=== PATIENT | female | born 1990 | race Caucasian/White ===

== ENCOUNTER → 2018-10-27 | Outpatient (CLI) | payer OTHER ==
[~2018-10-27] MED LIST: ALBU90OI INH; AZIT250 PO; CODACE30 PO; CRUTCH USE; FAMO20 PO; HYDACE5 PO; IBUP600 PO; IBUP800 PO; KETO120T TOP; Keflex500 MG PO; OXYACE5T PO; PROACE100 PO; PROM25 PO; RANI150 PO; RXCODACET PO; RXPROACE PO; RXSULTRIDS PO; SULTRIDS PO; [UNRECOGNIZED DRUG - OTHER]
[2018-10-29 18:06] LABS: HPV 16 Positive (Negative); HPV 18 Negative (Negative); HPV OTHER HR TYPES Positive (Negative)
== END | disposition home or self-care (01) ==
LOC: LAB 18:48 → LAB SHORT 18:48
PROVIDERS: Obstetrics & Gynecology Gynecology
DX: Z12.4 Encounter for screening for malignant neoplasm of cervix (principal)
CPT/HCPCS: 87624; 87625; G0123

== ENCOUNTER → 2019-02-22 | Outpatient (CLI) | payer OTHER | END | disposition home or self-care (01) | LOC: LAB 15:10 → LAB SHORT 15:10 | DX: L29.0 Pruritus ani (principal); R19.5 Other fecal abnormalities | CPT/HCPCS: 87177; 87209 ==

== ENCOUNTER → 2019-03-18 | Outpatient (CLI) | payer OTHER | LOC: LAB 04:45 → LAB SHORT 04:45 | DX: R19.5 Other fecal abnormalities (principal) | CPT/HCPCS: 87177; 87209 ==

== ENCOUNTER → 2019-03-30 | Outpatient (CLI) | payer OTHER ==
[2019-03-31 11:07] LABS: Candida species (DNA Probe) Negative (NEGATIVE); G. vaginalis (DNA Probe) Positive (NEGATIVE); T. vaginalis (DNA Probe) Negative (NEGATIVE)
[2019-04-02 03:07] LABS: CHLAMYDIA TRACHOMATIS, NAA Negative (Negative); NEISSERIA GONORRHOEAE, NAA Negative (Negative)
== END | disposition home or self-care (01) ==
LOC: LAB 16:55 → LAB SHORT 16:55
PROVIDERS: Nurse Practitioner
DX: L73.9 Follicular disorder, unspecified (principal); Z72.51 High risk heterosexual behavior; Z87.42 Personal history of other diseases of the female genital tract
CPT/HCPCS: 87070; 87205; 87480; 87491; 87510; 87529; 87591; 87660; 88175

== ENCOUNTER → 2019-11-20 | Outpatient (CLI) | payer OTHER ==
[~2019-11-20] MED LIST changes: +CEFP200 PO; +Citalopram HBr20 MG PO; +Klonopin0.5 MG PO; +Norco 5-325 Ta1 EACH PO; +OLAN2.5 PO; +PANTOPRAZOLE SO40 M2 PO
== END | disposition home or self-care (01) ==
LOC: LAB SHORT 09:44 → LAB 09:44
DX: R10.9 Unspecified abdominal pain (principal)
CPT/HCPCS: 87077; 87086; 87186

== ENCOUNTER 2020-03-04 09:29 | Emergency (ER) | payer OTHER ==
[~2020-03-04] VITALS: Ht 157.5 cm; Wt 63.5 kg
[2020-03-04] MEDS ORDERED: SELSUN BLUE MO207 ML TOP (10:04)
== END 2020-03-04 10:29 | disposition home or self-care (01) ==
LOC: ER 09:29
DX: L21.9 Seborrheic dermatitis, unspecified (principal); K21.9 Gastro-esophageal reflux disease without esophagitis; Z88.6 Allergy status to analgesic agent; Z79.899 Other long term (current) drug therapy; F17.210 Nicotine dependence, cigarettes, uncomplicated
CPT/HCPCS: 99282

== ENCOUNTER → 2020-03-14 | Outpatient (CLI) | payer OTHER ==
[~2020-03-14] MED LIST changes: +SELSUN BLUE MO207 ML TOP
[2020-03-16 07:09] LABS: CHLAMYDIA TRACHOMATIS, NAA Negative (Negative); NEISSERIA GONORRHOEAE, NAA Negative (Negative)
== END | disposition home or self-care (01) ==
LOC: LAB SHORT 16:51 → LAB 16:51
PROVIDERS: Nurse Practitioner Family
DX: Z11.3 Encounter for screening for infections with a predominantly sexual mode of transmission (principal)
CPT/HCPCS: 87491; 87591

== ENCOUNTER → 2020-04-05 | Outpatient (CLI) | payer OTHER ==
[~2020-04-05] MED LIST changes: +BENADRYL ITCH28.3 GM TOP
== END | disposition home or self-care (01) ==
LOC: LAB SHORT 21:29 → LAB 21:29
DX: S00.01XA Abrasion of scalp, initial encounter (principal); L08.9 Local infection of the skin and subcutaneous tissue, unspecified
CPT/HCPCS: 87015; 87116; 87206

== ENCOUNTER 2020-05-25 19:26 | Emergency (ER) | payer OTHER ==
[~2020-05-25] VITALS: Ht 157.5 cm; Wt 72.6 kg
[~2020-05-25 19:26] MED LIST changes: -BENADRYL ITCH28.3 GM TOP
[2020-05-25 20:34] LABS: Alanine Aminotransfer (ALT/SGP 28 U/L (12-78); Albumin, Blood 2.9 g/dL (3.4-5.0); Albumin/Globulin Ratio 0.9 (0.8-1.8); Alk Phos 68 U/L (50-136); Anion Gap 6 mmol/L (6-16); Aspartate Aminotrans (AST/SGOT 27 U/L (12-37); Bilirubin, Total 0.2 mg/dL (0.1-1.0); Blood Urea Nitrogen 8 mg/dL (8-24); Bun/Creatinine Ratio 14.8 (12.0-20.0); CO2, Blood 25 mmol/L (21-32); Calcium, Blood 8.8 mg/dL (8.5-10.1); Chloride, Blood 111 mmol/L (98-108); Creatinine, Blood 0.54 mg/dL (0.40-1.00); Globulin, Blood 3.3 g/dL (2.2-4.0); Glomerular Filtration Rate >60 (60-); Glucose, Blood 87 mg/dL (70-99); Potassium, Blood 4.5 mmol/L (3.5-5.5); Sodium, Blood 142 mmol/L (136-145); Total Protein, Blood 6.2 g/dL (6.4-8.2)
[2020-05-25 21:44] LABS: BASOPHILS ABSOLUTE AUTO 0.05 K/mm3 (0.00-0.23); BASOPHILS PERCENT AUTO 0 % (0-2); EOSINOPHILS ABSOLUTE AUTO 0.36 K/mm3 (0.00-0.68); EOSINOPHILS PERCENT AUTO 3 % (0-6); Hematocrit 33.2 % (33.0-51.0); IMMATURE GRAN ABSOLUTE AUTO 0.07 K/mm3 (0.00-0.10); IMMATURE GRAN PERCENT AUTO 1 % (0-1); LYMPHOCYTES ABSOLUTE AUTO 3.34 K/mm3 (0.84-5.20); LYMPHOCYTES PERCENT AUTO 25 % (21-46); MONOCYTES ABSOLUTE AUTO 1.21 K/mm3 (0.16-1.47); MONOCYTES PERCENT AUTO 9 % (4-13); Mean Corpuscular HGB 31.1 pg (26.0-34.0); Mean Corpuscular HGB Conc 33.1 g/dL (31.5-36.5); Mean Corpuscular Volume 94 fL (80-100); Mean Platelet Volume 9.9 fL (9.1-12.4); NEUTROPHILS ABSOLUTE AUTO 8.23 K/mm3 (1.96-9.15); NEUTROPHILS PERCENT AUTO 62 % (41-73); Platelet Count 379 K/mm3 (150-400); RDW Coefficient Variation 12.9 % (11.7-14.2); RDW Standard Deviation 44.6 fL (35.1-46.3); Red Blood Cell Count 3.54 M/mm3 (3.80-5.20); White Blood Cell Count 13.26 K/mm3 (4.00-11.30)
[2020-05-25 22:52] LABS: Source, Urine Clean Catch
[2020-05-25 22:55] LABS: Appearance, Urine Clear (Clear); Bilirubin, Urine Neg (Neg); Blood, Urine Neg (Neg); Color, Urine Yellow (P-Yellow); Glucose Qualitative, Urine Neg (Neg); Ketones, Urine Neg (Neg); Leukocyte Esterase, Urine Neg (Neg); Nitrite, Urine Neg (Neg); Protein, Urine Neg (Neg); Specific Gravity, Urine 1.025 (1.003-1.022); Urobilinogen, Urine NORM (Normal)
[2020-05-25] MEDS ORDERED: BENADRYL ITCH28.3 GM TOP (23:43)
== END 2020-05-25 23:38 | disposition home or self-care (01) ==
LOC: ER 19:26
PROVIDERS: Emergency Medicine
DX: O99.891 Other specified diseases and conditions complicating pregnancy (principal); R10.32 Left lower quadrant pain; R21 Rash and other nonspecific skin eruption; F41.9 Anxiety disorder, unspecified; F32.9 Major depressive disorder, single episode, unspecified; K21.9 Gastro-esophageal reflux disease without esophagitis; F43.10 Post-traumatic stress disorder, unspecified; Z88.6 Allergy status to analgesic agent; Z79.899 Other long term (current) drug therapy; Z3A.23 23 weeks gestation of pregnancy
CPT/HCPCS: 36415; 76816; 80053; 81003; 85025; 86900; 86901; 99284-25

== ENCOUNTER 2020-06-26 00:10 | Emergency (ER) | payer OTHER ==
[~2020-06-26] VITALS: Ht 157.5 cm; Wt 71.2 kg
[~2020-06-26 00:10] MED LIST changes: +BENADRYL ITCH28.3 GM TOP
[2020-06-26] MEDS ORDERED: BANOPHEN25 MG PO (00:28)
[2020-06-26] MEDS ORDERED: Cimetidine800 MG PO (00:28)
[2020-06-26] MEDS ORDERED: PRENATAL VITAMIN PLU (00:28)
[2020-06-26] MEDS ORDERED: MUPIROCIN15 GM TOP (01:27)
== END 2020-06-26 01:42 | disposition home or self-care (01) ==
LOC: ER 00:10
DX: L73.9 Follicular disorder, unspecified (principal); F41.9 Anxiety disorder, unspecified; F32.9 Major depressive disorder, single episode, unspecified; F43.10 Post-traumatic stress disorder, unspecified; K21.9 Gastro-esophageal reflux disease without esophagitis; F17.210 Nicotine dependence, cigarettes, uncomplicated; Z88.6 Allergy status to analgesic agent; Z79.899 Other long term (current) drug therapy
CPT/HCPCS: 99282

== ENCOUNTER 2020-09-08 01:30 | Inpatient (IN) | payer OTHER ==
[~2020-09-08] VITALS: Ht 157.5 cm; Wt 80.0 kg
[~2020-09-08 01:30] MED LIST changes: +BANOPHEN25 MG PO; +Cimetidine800 MG PO; -Citalopram HBr20 MG PO; -Klonopin0.5 MG PO; +MUPIROCIN15 GM TOP; -OLAN2.5 PO
[2020-09-08 02:10] LABS: BASOPHILS ABSOLUTE AUTO 0.06 K/mm3 (0.00-0.23); BASOPHILS PERCENT AUTO 1 % (0-2); EOSINOPHILS ABSOLUTE AUTO 0.15 K/mm3 (0.00-0.68); EOSINOPHILS PERCENT AUTO 1 % (0-6); Hematocrit 38.1 % (33.0-51.0); Hemoglobin 13.1 g/dL (11.5-16.0); IMMATURE GRAN ABSOLUTE AUTO 0.05 K/mm3 (0.00-0.10); IMMATURE GRAN PERCENT AUTO 0 % (0-1); LYMPHOCYTES ABSOLUTE AUTO 2.99 K/mm3 (0.84-5.20); LYMPHOCYTES PERCENT AUTO 25 % (21-46); MONOCYTES ABSOLUTE AUTO 1.19 K/mm3 (0.16-1.47); MONOCYTES PERCENT AUTO 10 % (4-13); Mean Corpuscular HGB 29.8 pg (26.0-34.0); Mean Corpuscular HGB Conc 34.4 g/dL (31.5-36.5); Mean Corpuscular Volume 87 fL (80-100); Mean Platelet Volume 12.9 fL (9.1-12.4); NEUTROPHILS PERCENT AUTO 62 % (41-73); Platelet Count 260 K/mm3 (150-400); RDW Coefficient Variation 13.4 % (11.7-14.2); RDW Standard Deviation 42.2 fL (35.1-46.3); Red Blood Cell Count 4.39 M/mm3 (3.80-5.20); White Blood Cell Count 11.84 K/mm3 (4.00-11.30)
[2020-09-08 02:48] LABS: Influenza A, PCR NEGATIVE (NEGATIVE); Influenza B, PCR NEGATIVE (NEGATIVE); Resp Syncytial Virus, PCR NEGATIVE (NEGATIVE); SARS-Cov-2 (COVID-19) PCR, MMC NEGATIVE (NEGATIVE)
[2020-09-08 03:01] LABS: U Amphetamine Screen DETECTED; U Barbituate Screen Not Detected; U Benzodiazapine Screen DETECTED; U Buprenorphine Screen Not Detected; U Cannabinoids Screen DETECTED; U Cocaine Screen Not Detected; U Methadone Screen Not Detected; U Methamphetamine Screen DETECTED; U Opiates Screen Not Detected; U Oxycodone Screen Not Detected; U Phencyclidine Screen Not Detected; U Propoxyphene Screen Not Detected
--- NOTE | 2020-09-08 03:29 | NUR ---
09/08/20 0329 Isatu Yanez PT VAGINALLY DELIVER BABY IN HOSPITAL BED BEFORE SURGERY COULD START.
[2020-09-08 03:33] LABS: PCO2 Cord - Arterial 63.5 mmHg (40-50); pH Cord - Arterial 7.21 (7.28-7.35)
[2020-09-08 03:36] LABS: PCO2 Cord - Venous 50.4 mmHg (40-50); PO2 Cord - Venous 24.4 mmHg (28-32); pH Umbilical Cord - Venous 7.32 (7.26-7.35)
[2020-09-08 04:12] LABS: U Amphetamine Screen DETECTED; U Barbituate Screen Not Detected; U Benzodiazapine Screen DETECTED; U Buprenorphine Screen Not Detected; U Cannabinoids Screen DETECTED; U Cocaine Screen Not Detected; U Methadone Screen Not Detected; U Methamphetamine Screen DETECTED; U Opiates Screen Not Detected; U Oxycodone Screen Not Detected; U Phencyclidine Screen Not Detected; U Propoxyphene Screen Not Detected
[2020-09-08 07:40] LABS: BASOPHILS ABSOLUTE AUTO 0.03 K/mm3 (0.00-0.23); BASOPHILS PERCENT AUTO 0 % (0-2); EOSINOPHILS ABSOLUTE AUTO 0.03 K/mm3 (0.00-0.68); EOSINOPHILS PERCENT AUTO 0 % (0-6); Hematocrit 30.2 % (33.0-51.0); IMMATURE GRAN ABSOLUTE AUTO 0.12 K/mm3 (0.00-0.10); IMMATURE GRAN PERCENT AUTO 1 % (0-1); LYMPHOCYTES ABSOLUTE AUTO 2.12 K/mm3 (0.84-5.20); LYMPHOCYTES PERCENT AUTO 10 % (21-46); MONOCYTES ABSOLUTE AUTO 1.29 K/mm3 (0.16-1.47); MONOCYTES PERCENT AUTO 6 % (4-13); Mean Corpuscular HGB Conc 33.1 g/dL (31.5-36.5); Mean Corpuscular Volume 91 fL (80-100); Mean Platelet Volume 12.5 fL (9.1-12.4); NEUTROPHILS ABSOLUTE AUTO 17.18 K/mm3 (1.96-9.15); NEUTROPHILS PERCENT AUTO 83 % (41-73); Platelet Count 225 K/mm3 (150-400); RDW Coefficient Variation 13.7 % (11.7-14.2); Red Blood Cell Count 3.33 M/mm3 (3.80-5.20); White Blood Cell Count 20.77 K/mm3 (4.00-11.30)
--- NOTE | 2020-09-08 18:47 | NUR ---
PT DELIVERED A BABY GIRL BY THIS AM, PT HAD SCHDULED RCS LATER THIS MONTH BUT HAS MISSED THE LAST FOUR OB VISITS. MOM HAS BEEN KEVIN TIRED THIS SHIFT AND NB HAS BEEN NURSERY THIS SHIFT AND THE SYNTHETIC CHEMIST HAS PERFORMED CARE. PT HAS OPEN CASE CURRENTLY WITH [facility] AND HOTLINE WAS NOTIFIED OF DELIVERY. [employer] AFTER HOUR WORKERS GERSON ARE HER TO PUT A PLAN IN PLACE FOR NB. REPORT GIVEN TO ETHAN GLEASON.
[2020-09-09 06:43] LABS: Hematocrit 24.1 % (33.0-51.0); Mean Corpuscular HGB 30.2 pg (26.0-34.0); Mean Corpuscular HGB Conc 33.2 g/dL (31.5-36.5); Mean Corpuscular Volume 91 fL (80-100); Mean Platelet Volume 12.4 fL (9.1-12.4); NRBC ABSOLUTE 0.02 K/mm3 (0.00-0.02); NRBC Auto 0.2 /100 WBC (0.0-0.2); Platelet Count 241 K/mm3 (150-400); RDW Standard Deviation 45.7 fL (35.1-46.3); Red Blood Cell Count 2.65 M/mm3 (3.80-5.20); White Blood Cell Count 13.29 K/mm3 (4.00-11.30)
[2020-09-09 07:31] LABS: BASOPHILS PERCENT MAN 0 % (0-2); EOSINOPHILS ABSOLUTE MAN 0.13 K/mm3 (0.00-0.68); EOSINOPHILS PERCENT MAN 1 % (0-6); LYMPHOCYTES ABSOLUTE MAN 4.25 K/mm3 (0.84-5.20); LYMPHOCYTES PERCENT MAN 32 % (21-46); MONOCYTES ABSOLUTE MAN 0.93 K/mm3 (0.16-1.47); MONOCYTES PERCENT MAN 7 % (4-13); NEUTROPHILS ABSOLUTE MAN 7.97 K/mm3 (1.96-9.15); SEG NEUTROPHILS PERCENT MAN 60 % (41-73); TOTAL CELLS COUNTED 100
--- NOTE | 2020-09-09 09:13 | NUR ---
PT DELIVERED 09/08/20 BY , PT UTOX WAS POSITVE ON ADMISSION, PT HAS OPEN CASE WITH [employer]. NB WENT TO MOMS ROOM AT 0800, MOM FEED NB AND REQUESTED NB GO BACK TO NURSERY AT 0900 FOR MOM TO GO OUTSIDE.
--- NOTE | 2020-09-09 14:45 | NUR ---
PT D/C TO [facility], PT WAS TRANSPORTED BY PRIVATE CAR. SAFETY PLAN PUT IN PLACE FOR NB BY [facility]. D/C INSTRUCTIONS REVIEWED AND SIGNED BY PT. S&S REVIEWED FOR HPERTENSION AND PT WAS INSTRUCTED TO CALL AND SCHDULE PP APPOINTMENT WITH PROVIDER. PT WILL RETURN TO [facility] IN 48HRS FOR PPFU.
== END 2020-09-09 14:46 | disposition home or self-care (01) | DRG 806 ==
LOC: OBS 01:30 → BC 01:31 → OBS 01:42 → BC 01:45
PROVIDERS: Family Medicine; ADMIT Family Medicine
PROC: 10D17Z9 Manual Extraction of Products of Conception, Retained, Via Natural or Artificial Opening (ICD-10-PCS; 2020-09-08)
PROC: 3E0R3BZ Introduction of Anesthetic Agent into Spinal Canal, Percutaneous Approach (ICD-10-PCS; 2020-09-08)
PROC: 00HU33Z Insertion of Infusion Device into Spinal Canal, Percutaneous Approach (ICD-10-PCS; 2020-09-08)
PROC: 10E0XZZ Delivery of Products of Conception, External Approach (ICD-10-PCS; principal; 2020-09-08 02:30)
DX: O34.211 Maternal care for low transverse scar from previous cesarean delivery (principal); O72.0 Third-stage hemorrhage; Z37.0 Single live birth; O99.324 Drug use complicating childbirth; O62.3 Precipitate labor; Z20.822 Contact with and (suspected) exposure to COVID-19; Z3A.38 38 weeks gestation of pregnancy; F19.90 Other psychoactive substance use, unspecified, uncomplicated
CPT/HCPCS: 0241U; 36415; 82803; 85025; 86850; 86900; 86901; 88307; A9270; G0480; J0456; J0690; J1885; J2210; J2765; J3010; J7050; J7120

== ENCOUNTER 2020-10-05 15:40 | Inpatient (IN) | payer OTHER ==
[~2020-10-05] VITALS: Ht 157.5 cm; Wt 73.5 kg
[2020-10-05 16:05] LABS: BASOPHILS ABSOLUTE AUTO 0.04 K/mm3 (0.00-0.23); BASOPHILS PERCENT AUTO 0 % (0-2); EOSINOPHILS PERCENT AUTO 1 % (0-6); Hematocrit 33.4 % (33.0-51.0); Hemoglobin 10.2 g/dL (11.5-16.0); IMMATURE GRAN ABSOLUTE AUTO 0.05 K/mm3 (0.00-0.10); IMMATURE GRAN PERCENT AUTO 0 % (0-1); LYMPHOCYTES PERCENT AUTO 16 % (21-46); MONOCYTES ABSOLUTE AUTO 1.54 K/mm3 (0.16-1.47); MONOCYTES PERCENT AUTO 10 % (4-13); Mean Corpuscular HGB 26.6 pg (26.0-34.0); Mean Corpuscular HGB Conc 30.5 g/dL (31.5-36.5); Mean Corpuscular Volume 87 fL (80-100); Mean Platelet Volume 9.7 fL (9.1-12.4); NEUTROPHILS ABSOLUTE AUTO 11.54 K/mm3 (1.96-9.15); NEUTROPHILS PERCENT AUTO 73 % (41-73); Platelet Count 512 K/mm3 (150-400); RDW Coefficient Variation 15.9 % (11.7-14.2); RDW Standard Deviation 50.8 fL (35.1-46.3); Red Blood Cell Count 3.84 M/mm3 (3.80-5.20); White Blood Cell Count 15.77 K/mm3 (4.00-11.30)
[2020-10-05 16:24] LABS: Alanine Aminotransfer (ALT/SGP 44 U/L (12-78); Albumin, Blood 3.3 g/dL (3.4-5.0); Albumin/Globulin Ratio 0.9 (0.8-1.8); Alk Phos 120 U/L (50-136); Anion Gap 7 mmol/L (6-16); Aspartate Aminotrans (AST/SGOT 30 U/L (12-37); Bilirubin, Total 0.3 mg/dL (0.1-1.0); Blood Urea Nitrogen 14 mg/dL (8-24); Bun/Creatinine Ratio 19.9 (12.0-20.0); CO2, Blood 27 mmol/L (21-32); Calcium, Blood 9.1 mg/dL (8.5-10.1); Chloride, Blood 100 mmol/L (98-108); Globulin, Blood 3.7 g/dL (2.2-4.0); Glomerular Filtration Rate >60 (60-); Glucose, Blood 83 mg/dL (70-99); Potassium, Blood 4.2 mmol/L (3.5-5.5); Sodium, Blood 134 mmol/L (136-145)
[2020-10-05 19:42] LABS: Source, Urine Clean Catch
[2020-10-05 19:48] LABS: Appearance, Urine Clear (Clear); Bilirubin, Urine Neg (Neg); Blood, Urine 2+ (Neg); Color, Urine Yellow (P-Yellow); Glucose Qualitative, Urine Neg (Neg); Ketones, Urine Neg (Neg); Leukocyte Esterase, Urine 1+ (Neg); Nitrite, Urine Neg (Neg); Protein, Urine Neg (Neg); Specific Gravity, Urine 1.005 (1.003-1.022); Urobilinogen, Urine NORM (Normal)
[2020-10-05 20:01] LABS: Red Blood Cells, Urine 0-2 /hpf (0-2)
[2020-10-05 20:03] LABS: Bacteria Few /hpf; Squamous Epithelial Cells Mod /hpf (Few)
[2020-10-05] MEDS ORDERED: Klonopin0.5 MG PO (22:07)
[2020-10-05] MEDS ORDERED: Citalopram HBr20 MG PO (22:07)
[2020-10-05] MEDS ORDERED: [UNRECOGNIZED DRUG - OTHER] PO (22:08)
[2020-10-05] MEDS ORDERED: OLAN5 PO (22:30)
[2020-10-05] MEDS ORDERED: Iron PO (22:31)
--- NOTE | 2020-10-06 01:35 | NUR ---
30 YR OLD FEMALE ADMITTED TO THE FLOOR FROM THE ED WITH DX OF ENDOMETRIOSIS/ENDOMETRITIS. POST ABOUT 4 WKS. SEE ABD XRAYS, ETC RE S/S. C/O LEFT ABD PAIM. ALERT AND ORIENTED. MALE SIGNIFICANT OTHER AT BEDSIDE TO ASSIST TO ANSWER QUESTIONS. ORIENTED TO USE OF JOSÉ MIGUEL LIGHT AND BED CONTROL. CALL LIGHT IN REACH
--- NOTE | 2020-10-06 02:50 | NUR ---
RESTING QUIETLY, CALL LIGHT IN REACH
--- NOTE | 2020-10-06 05:21 | NUR ---
SHIFT SUMMARY 30 YR OLD FEMALE ADMITED EARLIER IN THE SHIFT FOR ENDOMETRIOSIS/ENDOMETRITIS AND LEFT ABD PAIN. IVF OF NS HAS INFUSED, NPO PER MD ORDERS. HAS BEEN RESTING QUIETLY WITHOUT NOTED C/O PAIN OR NOTED ACUTE DISTRESS OF THIS WRITING. CALL LIGHT IN REACH
--- NOTE | 2020-10-06 10:14 | NUR ---
PT LEFT THE ROOM AT 0919 AND TOLD THE VENETIAN BLIND MAKER THAT SHE NEEDS TO SEE HER BOYFRIEND OUTSIDE. THIS NURSE WAS IN ANOTHER PT ROOM AND WAS NOT AWARE THAT THE PT LEFT THE ROOM. NYLON HOT WIRE CUTTER AWARE, AND CALLED SECURITY TO FIND THE PT. PT CAME BACK WITH BOYFRIEND. BOYFRIEND DID NOT WENT THROUGH THE SCREENING DOWNSTRAIRS; AND THIS NURSE TOLD HIM THE THAT THE VISITING HOURS FROM 2-6PM AND HE SHOULD LEAVE SOON, BUT HE STATED "LEAVE ME THE F ALONE; I WILL STAY WHENEVER I WANT TO." SECURITY CAME AND ESCORTED THIS MAN. THE PT WAS IN PAIN AND SEEMS NOT TO CARE WHETHER THE BOYFRIEND LEAVE THE HOSPITAL. PT WAS EDUCATED ABOUT THE VISITING HOURS AND NOT TO LEAVE THE BUILDING ESPECIALLY SHE IS RECEIVING ABX. THEREFORE THE ABX WAS LATE.
--- NOTE | 2020-10-06 10:37 | NUR ---
CALLED DR TUCKER AND INFORMED HER ABOUT THE WHAT HAPPENED- SEE THE PRIOR NOTE. RECEIVED AN ORDER FOR TOX SCREEN URINE, AND INFORMED THE PT THAT SHE NEEDS TO PROVIDE URINE SAMPLE WHEN SHE CAN. DR TUCKER WILL COME AND SEE THE PT LATER TODAY.
[2020-10-06 10:59] LABS: BASOPHILS ABSOLUTE AUTO 0.05 K/mm3 (0.00-0.23); BASOPHILS PERCENT AUTO 0 % (0-2); EOSINOPHILS ABSOLUTE AUTO 0.05 K/mm3 (0.00-0.68); EOSINOPHILS PERCENT AUTO 0 % (0-6); Hematocrit 31.2 % (33.0-51.0); IMMATURE GRAN ABSOLUTE AUTO 0.11 K/mm3 (0.00-0.10); IMMATURE GRAN PERCENT AUTO 1 % (0-1); LYMPHOCYTES ABSOLUTE AUTO 3.37 K/mm3 (0.84-5.20); LYMPHOCYTES PERCENT AUTO 23 % (21-46); MONOCYTES ABSOLUTE AUTO 1.27 K/mm3 (0.16-1.47); MONOCYTES PERCENT AUTO 9 % (4-13); Mean Corpuscular HGB 26.8 pg (26.0-34.0); Mean Corpuscular HGB Conc 32.1 g/dL (31.5-36.5); Mean Corpuscular Volume 84 fL (80-100); Mean Platelet Volume 9.6 fL (9.1-12.4); NEUTROPHILS ABSOLUTE AUTO 10.05 K/mm3 (1.96-9.15); NEUTROPHILS PERCENT AUTO 68 % (41-73); NRBC ABSOLUTE 0.02 K/mm3 (0.00-0.02); NRBC Auto 0.1 /100 WBC (0.0-0.2); Platelet Count 421 K/mm3 (150-400); RDW Coefficient Variation 16.2 % (11.7-14.2); RDW Standard Deviation 49.1 fL (35.1-46.3); Red Blood Cell Count 3.73 M/mm3 (3.80-5.20)
[2020-10-06 13:42] LABS: U Amphetamine Screen DETECTED; U Methamphetamine Screen DETECTED; U Oxycodone Screen DETECTED
[2020-10-06 13:43] LABS: U Barbituate Screen Not Detected; U Benzodiazapine Screen Not Detected; U Buprenorphine Screen Not Detected; U Cannabinoids Screen DETECTED; U Cocaine Screen DETECTED; U Methadone Screen Not Detected; U Opiates Screen DETECTED; U Phencyclidine Screen Not Detected; U Propoxyphene Screen Not Detected
--- NOTE | 2020-10-06 18:25 | NUR ---
SHIFT SUMMARY PT PAINFUL ON HER LEFT LOWER ABD- 4WEEKS . MEDICATED FOR PAINX3. PT WAS SEEN BY DR TUCKER TODAY. PT POSITIVE FOR TOXICOLOGY SCREEN-DR JACKSON. PT HAD A HX OF DRUG ABUSE. PT VERY QUIET AND FLAT AFFECT. PT AMBULATORY TO THE BATHROOM- JUST REALLY WEAK. BED IS IN THE LOWEST POSITION AND CALL LIGHT WITHIN REACH
--- NOTE | 2020-10-06 19:49 | NUR ---
IN ROOM, SPEAKING WITH PT. LATER, SPOKE WITH NURSE RE PT HAVING APPARENTLY TAKEN DRUGS WHEN SHE WENT OUT TO CAR EARLIER, URINE TOX SCREEN IN LAB BEING PROCESSED, (FROM ADD ON OF URINE OBTAINED WHILE IN ED YESTERDAY). PT INSTRUCTED NO OUT OF HOSPITAL EPISODES WHILE IN CARE. MD VOICED APPARENT PAIN OF ABD COULD BE POSSIBLE S/S CONSTIPATION AND WOULD ORDER BOWEL CARE MEDS. CALL LIGHT IN REACH
[2020-10-06 20:01] LABS: U Amphetamine Screen DETECTED; U Methamphetamine Screen DETECTED
[2020-10-06 20:02] LABS: U Barbituate Screen Not Detected; U Benzodiazapine Screen Not Detected; U Buprenorphine Screen Not Detected; U Cannabinoids Screen DETECTED; U Cocaine Screen Not Detected; U Methadone Screen Not Detected; U Opiates Screen DETECTED; U Oxycodone Screen Not Detected; U Phencyclidine Screen Not Detected; U Propoxyphene Screen Not Detected
--- NOTE | 2020-10-06 22:49 | NUR ---
TEMP ELEVATED - SEE DOC FLOW SHEETS. MEDS ADMININSTERED - WILL FOLLOW UP ON TEMP AND PAIN LEVELS. IV ANTIBIOTIC INFUSING. CALL LIGHT IN REACH
--- NOTE | 2020-10-06 23:15 | NUR ---
TEMP 99.5. DOWN FROM 101.9 EARLIER. MED EFFECTIVE. NO C/O PAIN AT THIS TIME. CALL LIGHT IN REACH
[2020-10-07 04:52] LABS: Alanine Aminotransfer (ALT/SGP 31 U/L (12-78); Albumin, Blood 2.5 g/dL (3.4-5.0); Albumin/Globulin Ratio 0.7 (0.8-1.8); Alk Phos 125 U/L (50-136); Anion Gap 4 mmol/L (6-16); Aspartate Aminotrans (AST/SGOT 22 U/L (12-37); Bilirubin, Total 0.3 mg/dL (0.1-1.0); Blood Urea Nitrogen 8 mg/dL (8-24); Bun/Creatinine Ratio 11.5 (12.0-20.0); CO2, Blood 29 mmol/L (21-32); Calcium, Blood 8.3 mg/dL (8.5-10.1); Chloride, Blood 102 mmol/L (98-108); Creatinine, Blood 0.69 mg/dL (0.40-1.00); Globulin, Blood 3.6 g/dL (2.2-4.0); Glomerular Filtration Rate >60 (60-); Glucose, Blood 92 mg/dL (70-99); Potassium, Blood 3.3 mmol/L (3.5-5.5); Sodium, Blood 135 mmol/L (136-145); Total Protein, Blood 6.1 g/dL (6.4-8.2)
[2020-10-07 06:01] LABS: BASOPHILS ABSOLUTE AUTO 0.07 K/mm3 (0.00-0.23); BASOPHILS PERCENT AUTO 1 % (0-2); EOSINOPHILS ABSOLUTE AUTO 0.14 K/mm3 (0.00-0.68); EOSINOPHILS PERCENT AUTO 1 % (0-6); Hematocrit 32.1 % (33.0-51.0); Hemoglobin 9.8 g/dL (11.5-16.0); IMMATURE GRAN ABSOLUTE AUTO 0.15 K/mm3 (0.00-0.10); IMMATURE GRAN PERCENT AUTO 1 % (0-1); LYMPHOCYTES ABSOLUTE AUTO 4.74 K/mm3 (0.84-5.20); LYMPHOCYTES PERCENT AUTO 31 % (21-46); MONOCYTES ABSOLUTE AUTO 1.72 K/mm3 (0.16-1.47); MONOCYTES PERCENT AUTO 11 % (4-13); Mean Corpuscular HGB 26.3 pg (26.0-34.0); Mean Corpuscular HGB Conc 30.5 g/dL (31.5-36.5); Mean Corpuscular Volume 86 fL (80-100); Mean Platelet Volume 10.9 fL (9.1-12.4); NEUTROPHILS ABSOLUTE AUTO 8.56 K/mm3 (1.96-9.15); NEUTROPHILS PERCENT AUTO 56 % (41-73); Platelet Count 479 K/mm3 (150-400); RDW Coefficient Variation 16.4 % (11.7-14.2); RDW Standard Deviation 51.6 fL (35.1-46.3); Red Blood Cell Count 3.73 M/mm3 (3.80-5.20); White Blood Cell Count 15.38 K/mm3 (4.00-11.30)
--- NOTE | 2020-10-07 07:09 | NUR ---
SHIFT SUMMARY AFTER DISCUSSION WITH PT RE NOT LEAVING THE HOSPITAL TO GET ITEMS OUT OF HER CAR, PT BECAME SOMEWHAT STOIC AND WITHDRAWN. MD ORDERED PT MEDICATIONS AND AFTER PT HAD ANALGESIC AND PSYCH MEDS, BECAME MORE RECEPTIVE TO HOSPITAL ROUTINE AND RESTED QUIETLY MOST OF THE SHIFT, AWAKENING FOR MEDICATIONS - ANTIBIOTICS, ETC. CALL LIGHT IN REACH. NO C/O VOICED AFTER SAID ISSUE.
[2020-10-07 17:22] LABS: BASOPHILS ABSOLUTE AUTO 0.06 K/mm3 (0.00-0.23); BASOPHILS PERCENT AUTO 0 % (0-2); EOSINOPHILS ABSOLUTE AUTO 0.18 K/mm3 (0.00-0.68); EOSINOPHILS PERCENT AUTO 1 % (0-6); Hematocrit 30.3 % (33.0-51.0); Hemoglobin 9.5 g/dL (11.5-16.0); IMMATURE GRAN ABSOLUTE AUTO 0.09 K/mm3 (0.00-0.10); IMMATURE GRAN PERCENT AUTO 1 % (0-1); LYMPHOCYTES ABSOLUTE AUTO 3.81 K/mm3 (0.84-5.20); LYMPHOCYTES PERCENT AUTO 29 % (21-46); MONOCYTES ABSOLUTE AUTO 1.48 K/mm3 (0.16-1.47); MONOCYTES PERCENT AUTO 11 % (4-13); Mean Corpuscular HGB 26.7 pg (26.0-34.0); Mean Corpuscular HGB Conc 31.4 g/dL (31.5-36.5); Mean Corpuscular Volume 85 fL (80-100); Mean Platelet Volume 10.1 fL (9.1-12.4); NEUTROPHILS ABSOLUTE AUTO 7.72 K/mm3 (1.96-9.15); NEUTROPHILS PERCENT AUTO 58 % (41-73); Platelet Count 468 K/mm3 (150-400); RDW Standard Deviation 49.7 fL (35.1-46.3); Red Blood Cell Count 3.56 M/mm3 (3.80-5.20); White Blood Cell Count 13.34 K/mm3 (4.00-11.30)
--- NOTE | 2020-10-07 17:30 | NUR ---
SHIFT SUMMARY PT AOX4; PT WAS NOTED TO HAVE FEVER LAST NIGHT- NO FEVER TODAY. PER PT CAN GO HOME IF 24 HOURS OF NO FEVER. PT MEDICATED TODAY FOR PAIN; PAIN IS MORE CONTROLLED AND LESS PAIN TODAY THAN YESTERDAY PER PT. PT INDEPENDENT IN THE ROOM. PT EDUCATED ABOUT NOT LEAVING THE HOSPITAL AND USE ILLEGAL SUBSTANCE . PT DENIES COCCAINE USE. NO APPARENT DISTRESS AT THIS TIME. BED IS IN THE LOWEST POSITION AND CALL LIGHT WITHIN REACH
[2020-10-07 17:39] LABS: Alanine Aminotransfer (ALT/SGP 27 U/L (12-78); Albumin, Blood 2.4 g/dL (3.4-5.0); Albumin/Globulin Ratio 0.7 (0.8-1.8); Alk Phos 120 U/L (50-136); Anion Gap 3 mmol/L (6-16); Aspartate Aminotrans (AST/SGOT 24 U/L (12-37); Bilirubin, Total 0.1 mg/dL (0.1-1.0); Blood Urea Nitrogen 8 mg/dL (8-24); Bun/Creatinine Ratio 10.5 (12.0-20.0); CO2, Blood 29 mmol/L (21-32); Calcium, Blood 8.3 mg/dL (8.5-10.1); Chloride, Blood 106 mmol/L (98-108); Creatinine, Blood 0.76 mg/dL (0.40-1.00); Globulin, Blood 3.5 g/dL (2.2-4.0); Glomerular Filtration Rate >60 (60-); Glucose, Blood 99 mg/dL (70-99); Potassium, Blood 3.9 mmol/L (3.5-5.5); Sodium, Blood 138 mmol/L (136-145); Total Protein, Blood 5.9 g/dL (6.4-8.2)
--- NOTE | 2020-10-07 18:41 | NUR ---
CALLED THE DR AND INFORMED ABOUT THE LAB VALUES; PT CAN GO HOME. ABX HAS TO GIVEN PRIOR DISCHARGE. PT VS CHECKED PRIOR DISCHARGE.
[2020-10-07] MEDS ORDERED: Acetaminophen325 M1 PO (20:16)
[2020-10-07] MEDS ORDERED: SENN187 PO (20:18)
[2020-10-07] MEDS ORDERED: DOCU100 PO (20:18)
--- NOTE | 2020-10-07 20:29 | NUR ---
[place] DCINSTRUCTIONS REVIEWED W/PT, PT VERBALIZED UNDERSTANDING, MEDS FAXED TO [facility] @ 1958, PT WALKED OUT TO [place] IN PRIVATE VEHICLE @ 2025.
[2020-10-13 22:07] LABS: 6-ACETYLMORPHINE Not Detected (.)
== END 2020-10-07 20:33 | disposition home or self-care (01) | DRG 776 ==
LOC: ER 15:40 → ERHOLD 10-06 00:44 → MEDS 10-06 01:12
PROVIDERS: Family Medicine; Physician Assistant; ADMIT Obstetrics & Gynecology
DX: O86.12 Endometritis following delivery (principal); O86.20 Urinary tract infection following delivery, unspecified; F43.10 Post-traumatic stress disorder, unspecified; K21.9 Gastro-esophageal reflux disease without esophagitis; K44.9 Diaphragmatic hernia without obstruction or gangrene; K59.01 Slow transit constipation; F41.8 Other specified anxiety disorders; B95.4 Other streptococcus as the cause of diseases classified elsewhere; F14.90 Cocaine use, unspecified, uncomplicated; E87.6 Hypokalemia; F15.90 Other stimulant use, unspecified, uncomplicated; F17.210 Nicotine dependence, cigarettes, uncomplicated; Z59.0 Homelessness; Z98.890 Other specified postprocedural states; Z98.891 History of uterine scar from previous surgery; Z88.8 Allergy status to other drugs, medicaments and biological substances; Z79.899 Other long term (current) drug therapy
CPT/HCPCS: 36415; 74177; 76830; 76856; 80053; 81001; 83605; 83690; 84702; 85025; 85651; 86140; 86141; 87086; 87147; 96361; 96365-59; 96367; 96375; 96376; 99285-25; A9270; G0480; J0295; J2270; J2405; J7030; Q9967

== ENCOUNTER → 2022-01-21 | Outpatient (CLI) | payer OTHER ==
[~2022-01-21] MED LIST changes: +Acetaminophen325 M1 PO; +Citalopram HBr20 MG PO; +DOCU100 PO; +Iron PO; +Klonopin0.5 MG PO; +OLAN5 PO; +SENN187 PO; +[UNRECOGNIZED DRUG - OTHER] PO
== END | disposition home or self-care (01) ==
LOC: LAB SHORT 15:43 → LAB 15:43
DX: L01.00 Impetigo, unspecified (principal); L02.92 Furuncle, unspecified
CPT/HCPCS: 87070; 87075; 87077; 87147; 87186; 87205

== ENCOUNTER 2023-02-07 00:18 | Emergency (ER) | payer OTHER ==
[~2023-02-07] VITALS: Ht 157.5 cm; Wt 59.0 kg
[~2023-02-07 00:18] MED LIST changes: +CEPH500 PO
[2023-02-07 00:58] LABS: BASOPHILS ABSOLUTE AUTO 0.05 K/mm3 (0.00-0.23); BASOPHILS PERCENT AUTO 0 % (0-2); EOSINOPHILS ABSOLUTE AUTO 0.14 K/mm3 (0.00-0.68); EOSINOPHILS PERCENT AUTO 1 % (0-6); Hematocrit 35.6 % (33.0-51.0); Hemoglobin 11.9 g/dL (11.5-16.0); IMMATURE GRAN ABSOLUTE AUTO 0.04 K/mm3 (0.00-0.10); IMMATURE GRAN PERCENT AUTO 0 % (0-1); LYMPHOCYTES PERCENT AUTO 23 % (21-46); MONOCYTES ABSOLUTE AUTO 1.07 K/mm3 (0.16-1.47); MONOCYTES PERCENT AUTO 9 % (4-13); Mean Corpuscular HGB 30.3 pg (26.0-34.0); Mean Corpuscular HGB Conc 33.4 g/dL (31.5-36.5); Mean Corpuscular Volume 91 fL (80-100); Mean Platelet Volume 10.1 fL (9.1-12.4); NEUTROPHILS ABSOLUTE AUTO 8.04 K/mm3 (1.96-9.15); NEUTROPHILS PERCENT AUTO 66 % (41-73); Platelet Count 358 K/mm3 (150-400); RDW Coefficient Variation 12.9 % (11.7-14.2); RDW Standard Deviation 42.9 fL (35.1-46.3); Red Blood Cell Count 3.93 M/mm3 (3.80-5.20); White Blood Cell Count 12.14 K/mm3 (4.00-11.30)
[2023-02-07 01:43] LABS: Alanine Aminotransfer (ALT/SGP 30 U/L (12-78); Albumin, Blood 3.6 g/dL (3.4-5.0); Albumin/Globulin Ratio 1.1 (0.8-1.8); Alk Phos 77 U/L (50-136); Anion Gap 7 mmol/L (6-16); Aspartate Aminotrans (AST/SGOT 19 U/L (12-37); Bilirubin, Total <0.1 mg/dL (0.1-1.0); Blood Urea Nitrogen 18 mg/dL (8-24); Bun/Creatinine Ratio 23.5 (12.0-20.0); CO2, Blood 25 mmol/L (21-32); Calcium, Blood 8.8 mg/dL (8.5-10.1); Chloride, Blood 109 mmol/L (98-108); Creatinine, Blood 0.77 mg/dL (0.40-1.00); Globulin, Blood 3.4 g/dL (2.2-4.0); Glomerular Filtration Rate 104 (60-); Glucose, Blood 98 mg/dL (70-99); Potassium, Blood 3.7 mmol/L (3.5-5.5); Sodium, Blood 141 mmol/L (136-145)
[2023-02-07 02:21] VITALS: BP 129/93
[2023-02-07] MEDS ORDERED: SULTRIDS PO (03:30)
== END 2023-02-07 03:41 | disposition home or self-care (01) ==
LOC: ER 00:18
PROVIDERS: Student in an Organized Health Care Education/Training Program
DX: L03.116 Cellulitis of left lower limb (principal); L02.416 Cutaneous abscess of left lower limb; Z88.8 Allergy status to other drugs, medicaments and biological substances; Z79.899 Other long term (current) drug therapy; E11.9 Type 2 diabetes mellitus without complications; I10 Essential (primary) hypertension; E78.00 Pure hypercholesterolemia, unspecified
CPT/HCPCS: 10060; 80053; 85025; 96361-59; 96374-59; 99283-25; A9270; J1885; J7030

== ENCOUNTER 2023-09-15 11:39 | Emergency (ER) | payer OTHER ==
[~2023-09-15] VITALS: Ht 157.5 cm; Wt 63.5 kg
[~2023-09-15 11:39] MED LIST changes: +DOXY100 PO
[2023-09-15 11:52] VITALS: BP 132/90
[2023-09-15 13:09] LABS: BASOPHILS ABSOLUTE AUTO 0.03 K/mm3 (0.00-0.23); BASOPHILS PERCENT AUTO 1 % (0-2); EOSINOPHILS ABSOLUTE AUTO 0.09 K/mm3 (0.00-0.68); EOSINOPHILS PERCENT AUTO 1 % (0-6); Hematocrit 36.6 % (33.0-51.0); Hemoglobin 11.9 g/dL (11.5-16.0); IMMATURE GRAN ABSOLUTE AUTO 0.01 K/mm3 (0.00-0.10); IMMATURE GRAN PERCENT AUTO 0 % (0-1); LYMPHOCYTES ABSOLUTE AUTO 2.21 K/mm3 (0.84-5.20); LYMPHOCYTES PERCENT AUTO 35 % (21-46); MONOCYTES ABSOLUTE AUTO 0.72 K/mm3 (0.16-1.47); MONOCYTES PERCENT AUTO 12 % (4-13); Mean Corpuscular HGB 30.7 pg (26.0-34.0); Mean Corpuscular HGB Conc 32.5 g/dL (31.5-36.5); Mean Corpuscular Volume 94 fL (80-100); Mean Platelet Volume 9.6 fL (9.1-12.4); NEUTROPHILS PERCENT AUTO 51 % (41-73); Platelet Count 375 K/mm3 (150-400); RDW Coefficient Variation 14.7 % (11.7-14.2); RDW Standard Deviation 50.9 fL (35.1-46.3); Red Blood Cell Count 3.88 M/mm3 (3.80-5.20); White Blood Cell Count 6.26 K/mm3 (4.00-11.30)
[2023-09-15 13:50] LABS: Albumin, Blood 3.6 g/dL (3.4-5.0); Albumin/Globulin Ratio 1.2 (0.8-1.8); Bilirubin, Total 0.1 mg/dL (0.1-1.0); Bun/Creatinine Ratio 21.5 (12.0-20.0); Creatinine, Blood 0.65 mg/dL (0.40-1.00); Globulin, Blood 3.1 g/dL (2.2-4.0); Total Protein, Blood 6.7 g/dL (6.4-8.2)
[2023-09-15 14:25] LABS: Source, Urine Clean Catch
[2023-09-15 14:29] LABS: Appearance, Urine Hazy (Clear); Bilirubin, Urine Neg (Neg); Blood, Urine Neg (Neg); Glucose Qualitative, Urine Neg (Neg); Ketones, Urine Neg (Neg); Leukocyte Esterase, Urine Neg (Neg); Nitrite, Urine Neg (Neg); Protein, Urine Neg (Neg); Specific Gravity, Urine 1.015 (1.003-1.022); Urobilinogen, Urine NORM (Normal)
[2023-09-15 14:36] LABS: Color, Urine Pale Yellow (P-Yellow)
[2023-09-15 14:37] LABS: Amorphous Light (0-Heavy); Bacteria Few /hpf; Red Blood Cells, Urine Not Seen /hpf (0-2); Squamous Epithelial Cells Few /hpf (Few); White Blood Cells, Urine 0-2 /hpf (0-5)
== END 2023-09-15 14:45 | disposition left against medical advice (07) ==
LOC: ER 11:39
PROVIDERS: Physician Assistant
DX: R10.32 Left lower quadrant pain (principal); Z53.21 Procedure and treatment not carried out due to patient leaving prior to being seen by health care provider
CPT/HCPCS: 80053; 81001; 84703; 85025; 99281

== ENCOUNTER → 2023-10-28 | Outpatient (CLI) | payer OTHER ==
[2023-10-31 09:52] LABS: APTIMA MEDIA TYPE Urine; C. TRACHOMATIS BY TMA Negative (Negative); N. GONORRHOEAE BY TMA Negative (Negative); SPECIMEN SOURCE Urine
== END | disposition home or self-care (01) ==
LOC: LAB SHORT 16:25 → LAB 16:25
PROVIDERS: Advanced Practice Midwife
DX: Z11.3 Encounter for screening for infections with a predominantly sexual mode of transmission (principal)
CPT/HCPCS: 87491; 87591

== ENCOUNTER 2024-01-09 21:08 | Emergency (ER) | payer OTHER ==
[~2024-01-09] VITALS: Ht 157.5 cm; Wt 72.6 kg
[2024-01-09] MEDS ORDERED: HYDPAM50 PO (21:20)
[2024-01-09] MEDS ORDERED: Prozac20 MG PO (21:20)
[2024-01-09] MEDS ORDERED: Celexa10 MG PO (21:20)
[2024-01-09] MEDS ORDERED: PRAZ2 PO (21:20)
[2024-01-09 22:43] LABS: U Amphetamine Screen DETECTED; U Barbituate Screen Not Detected; U Benzodiazapine Screen Not Detected; U Buprenorphine Screen Not Detected; U Cannabinoids Screen Not Detected; U Cocaine Screen Not Detected; U Methadone Screen Not Detected; U Methamphetamine Screen Not Detected; U Opiates Screen Not Detected; U Oxycodone Screen Not Detected; U Phencyclidine Screen Not Detected
[2024-01-09 22:48] LABS: BASOPHILS ABSOLUTE AUTO 0.07 K/mm3 (0.00-0.23); BASOPHILS PERCENT AUTO 0 % (0-2); EOSINOPHILS ABSOLUTE AUTO 0.09 K/mm3 (0.00-0.68); EOSINOPHILS PERCENT AUTO 0 % (0-6); Hematocrit 41.4 % (33.0-51.0); Hemoglobin 13.5 g/dL (11.5-16.0); IMMATURE GRAN ABSOLUTE AUTO 0.21 K/mm3 (0.00-0.10); IMMATURE GRAN PERCENT AUTO 1 % (0-1); LYMPHOCYTES ABSOLUTE AUTO 2.16 K/mm3 (0.84-5.20); LYMPHOCYTES PERCENT AUTO 11 % (21-46); MONOCYTES ABSOLUTE AUTO 1.67 K/mm3 (0.16-1.47); MONOCYTES PERCENT AUTO 8 % (4-13); Mean Corpuscular HGB 29.9 pg (26.0-34.0); Mean Corpuscular HGB Conc 32.6 g/dL (31.5-36.5); Mean Corpuscular Volume 92 fL (80-100); Mean Platelet Volume 9.4 fL (9.1-12.4); NEUTROPHILS ABSOLUTE AUTO 16.09 K/mm3 (1.96-9.15); NEUTROPHILS PERCENT AUTO 80 % (41-73); Platelet Count 374 K/mm3 (150-400); RDW Coefficient Variation 14.8 % (11.7-14.2); RDW Standard Deviation 49.7 fL (35.1-46.3); Red Blood Cell Count 4.51 M/mm3 (3.80-5.20); White Blood Cell Count 20.29 K/mm3 (4.00-11.30)
[2024-01-09 23:09] LABS: Ethanol (Alcohol), Blood, Med <3 mg/dL; Salicylate 2.2 mg/dL (2.8-20.0)
[2024-01-09 23:10] LABS: Acetaminophen, Random <2.0 ug/mL (10.0-30.0); Alanine Aminotransfer (ALT/SGP 26 U/L (12-78); Albumin, Blood 3.8 g/dL (3.4-5.0); Albumin/Globulin Ratio 1.1 (0.8-1.8); Alk Phos 76 U/L (50-136); Anion Gap 7 mmol/L (3-11); Aspartate Aminotrans (AST/SGOT 27 U/L (12-37); Bilirubin, Total 0.2 mg/dL (0.1-1.0); Blood Urea Nitrogen 19 mg/dL (8-24); Bun/Creatinine Ratio 27.8 (12.0-20.0); CO2, Blood 25 mmol/L (21-32); Calcium, Blood 8.4 mg/dL (8.5-10.1); Chloride, Blood 109 mmol/L (98-108); Creatinine, Blood 0.68 mg/dL (0.40-1.00); Globulin, Blood 3.6 g/dL (2.2-4.0); Glomerular Filtration Rate 117 (60-); Glucose, Blood 98 mg/dL (70-99); Sodium, Blood 137 mmol/L (136-145); Total Protein, Blood 7.4 g/dL (6.4-8.2)
[2024-01-09 23:39] LABS: Source, Urine Clean Catch
[2024-01-09 23:42] LABS: Bilirubin, Urine Neg (Neg); Blood, Urine 2+ (Neg); Glucose Qualitative, Urine Neg (Neg); Ketones, Urine Neg (Neg); Leukocyte Esterase, Urine Neg (Neg); Nitrite, Urine Neg (Neg); Protein, Urine 2+ (Neg); Urobilinogen, Urine NORM (Normal)
[2024-01-09 23:44] LABS: Color, Urine Yellow (P-Yellow)
[2024-01-10 00:09] LABS: Appearance, Urine Clear (Clear)
[2024-01-10 00:10] LABS: Bacteria Not Seen /hpf; Red Blood Cells, Urine 0-2 /hpf (0-2); Squamous Epithelial Cells Not Seen /hpf (Few); White Blood Cells, Urine Not Seen /hpf (0-5)
[2024-01-10 00:52] VITALS: BP 128/74
== END 2024-01-10 00:53 | disposition home or self-care (01) ==
LOC: ER 21:08
PROVIDERS: Emergency Medicine
DX: Z00.8 Encounter for other general examination (principal); Z88.8 Allergy status to other drugs, medicaments and biological substances; Z79.899 Other long term (current) drug therapy; E11.9 Type 2 diabetes mellitus without complications; I10 Essential (primary) hypertension; E78.00 Pure hypercholesterolemia, unspecified; K21.9 Gastro-esophageal reflux disease without esophagitis; F43.10 Post-traumatic stress disorder, unspecified; F17.210 Nicotine dependence, cigarettes, uncomplicated
CPT/HCPCS: 70450; 80053; 81001; 81025; 84439; 84443; 85025; 93005; 93010; 99284-25; G0480

== ENCOUNTER 2024-11-10 19:44 | Emergency (ER) | payer OTHER ==
[~2024-11-10] VITALS: Ht 157.5 cm; Wt 75.8 kg
[~2024-11-10 19:44] MED LIST changes: +Celexa10 MG PO; +HYDPAM50 PO; +PRAZ2 PO; +Prozac20 MG PO
[2024-11-10 20:20] LABS: BASOPHILS ABSOLUTE AUTO 0.06 K/mm3 (0.00-0.23); BASOPHILS PERCENT AUTO 1 % (0-2); EOSINOPHILS ABSOLUTE AUTO 0.15 K/mm3 (0.00-0.68); EOSINOPHILS PERCENT AUTO 1 % (0-6); Hematocrit 39.8 % (33.0-51.0); Hemoglobin 13.4 g/dL (11.5-16.0); IMMATURE GRAN ABSOLUTE AUTO 0.02 K/mm3 (0.00-0.10); IMMATURE GRAN PERCENT AUTO 0 % (0-1); LYMPHOCYTES ABSOLUTE AUTO 3.46 K/mm3 (0.84-5.20); LYMPHOCYTES PERCENT AUTO 32 % (21-46); MONOCYTES ABSOLUTE AUTO 1.03 K/mm3 (0.16-1.47); MONOCYTES PERCENT AUTO 9 % (4-13); Mean Corpuscular HGB 30.6 pg (26.0-34.0); Mean Corpuscular HGB Conc 33.7 g/dL (31.5-36.5); Mean Corpuscular Volume 91 fL (80-100); Mean Platelet Volume 9.5 fL (9.1-12.4); NEUTROPHILS ABSOLUTE AUTO 6.21 K/mm3 (1.96-9.15); NEUTROPHILS PERCENT AUTO 57 % (41-73); Platelet Count 450 K/mm3 (150-400); Red Blood Cell Count 4.38 M/mm3 (3.80-5.20); White Blood Cell Count 10.93 K/mm3 (4.00-11.30)
[2024-11-10 20:41] LABS: Albumin, Blood 3.6 g/dL (3.4-5.0); Bilirubin, Total 0.2 mg/dL (0.1-1.0); Bun/Creatinine Ratio 14.5 (12.0-20.0); Calcium, Blood 8.8 mg/dL (8.5-10.1); Creatinine, Blood 0.9 mg/dL (0.40-1.00); Globulin, Blood 3.6 g/dL (2.2-4.0); Potassium, Blood 3.8 mmol/L (3.5-5.5); Total Protein, Blood 7.2 g/dL (6.4-8.2)
[2024-11-10] MEDS ORDERED: Acetaminophen 500 MG Tab PO ONE (21:30)
[2024-11-10] MEDS ORDERED: ACET500 PO (22:17)
[2024-11-10 22:30] VITALS: BP 145/95
== END 2024-11-10 22:39 | disposition home or self-care (01) ==
LOC: ER 19:44
PROVIDERS: Emergency Medicine
DX: R07.89 Other chest pain (principal); E11.9 Type 2 diabetes mellitus without complications; I10 Essential (primary) hypertension; E78.00 Pure hypercholesterolemia, unspecified; K21.9 Gastro-esophageal reflux disease without esophagitis; F17.210 Nicotine dependence, cigarettes, uncomplicated; Z88.6 Allergy status to analgesic agent; Z79.899 Other long term (current) drug therapy
CPT/HCPCS: 71045; 80053; 84484; 85025; 85379; 93005; 93010; 99285-25; A9270

== ENCOUNTER → 2025-01-20 | Outpatient (CLI) | payer OTHER ==
[~2025-01-20] MED LIST changes: +ACET500 PO
[2025-01-20 17:57] LABS: Candida Group, PCR NOT DETECTED (NOT DETECT); Candida glabrata-krusei, PCR NOT DETECTED (NOT DETECT)
[2025-01-20 18:04] LABS: Bacterial Vaginosis PCR Positive (NEGATIVE)
[2025-01-22 15:18] LABS: C. TRACHOMATIS BY TMA,THINPREP Negative (Negative); N. GONORRHOEAE BY TMA,THINPREP Negative (Negative); SPECIMEN SOURCE Cervical
[2025-01-31 13:27] LABS: HPV GENOTYPE 16 BY TMA Detected; HPV GENOTYPE 18/45 BY TMA Not Detected; HPV HIGH RISK BY TMA Detected; HPV SOURCE Cervical/Vag; HPVG SOURCE Cervical/Vag
== END ==
LOC: LAB 15:28 → LAB SHORT 15:28
PROVIDERS: Advanced Practice Midwife
DX: Z01.419 Encounter for gynecological examination (general) (routine) without abnormal findings (principal); N76.0 Acute vaginitis
CPT/HCPCS: 81515; 87491; 87591; 87624; 87625; G0123

== ENCOUNTER → 2025-04-18 | Outpatient (CLI) | payer OTHER ==
[2025-04-18 18:16] LABS: Candida glabrata-krusei, PCR NOT DETECTED (NOT DETECT)
[2025-04-18 18:47] LABS: Chlamydia Trachomatis Vaginal NOT DETECTED (NOT DETECT); Neisseria Gonorrhoea Vaginal NOT DETECTED (NOT DETECT)
[2025-04-18 18:56] LABS: Bacterial Vaginosis PCR Positive (NEGATIVE); Candida Group, PCR DETECTED (NOT DETECT)
== END ==
LOC: LAB 15:15 → LAB SHORT 15:15
PROVIDERS: Nurse Practitioner Family
DX: Z11.3 Encounter for screening for infections with a predominantly sexual mode of transmission (principal)
CPT/HCPCS: 81515; 87491; 87591